=== PATIENT | male | born 1970 | race Two or more races ===

== ENCOUNTER 2022-03-13 08:09 | Emergency (ER) | payer OTHER ==
[~2022-03-13] VITALS: Ht 170.2 cm; Wt 95.2 kg
[2022-03-13 09:22] VITALS: BP 131/88
== END 2022-03-13 11:51 | disposition home or self-care (01) ==
LOC: ER 08:09
DX: S09.90XA Unspecified injury of head, initial encounter (principal); W20.8XXA Other cause of strike by thrown, projected or falling object, initial encounter; Y93.89 Activity, other specified; Y92.89 Other specified places as the place of occurrence of the external cause; Y99.8 Other external cause status
CPT/HCPCS: 70450